=== PATIENT | female | born 1995 | race Caucasian/White ===

== ENCOUNTER 2023-10-07 07:51 | Inpatient (IN) | payer MEDICAID ==
[~2023-10-07] VITALS: Ht 160 cm; Wt 89.5 kg
[~2023-10-07 07:51] MED LIST: MAGNESIUM CITR100 MG PO; PRENATAL TABLET PO; PROBIOTIC BLEN1 EACH PO
[2023-10-08] VITALS (37 sets, daily range): BP systolic 89–122; BP diastolic 50–80; PULSE 69–122; TEMP 97.4–97.9
[2023-10-08] MEDS ORDERED: LR & Oxytocin 500 ML IV SCH ×2 (06:15)
[2023-10-08] MEDS ORDERED: LR 1,000 ML IV SCH (06:15)
--- NOTE | 2023-10-08 06:35 | NUR ---
PT AMBULATORY TO LR5 WITH SPOUSE. CHANGED INTO CLEAN GOWN. FHR MONITOR/TOCO APPLIED. PT DENIES ANY REGULAR CONTRACTIONS, VAGINAL BLEEDING, OR LEAKING OF FLUID. PT REPORTS GOOD MOVEMENT. PT ORIENTED TO ROOM AND CALL LIGHT. PLAN OF CARE DISCUSSED. PT VERBALIZES UNDERSTANDING.
[2023-10-08 07:41] LABS: BASO % 0.5 % (0.0-2.0); EOS # 0.3 K/mm3 (0.0-0.7); EOS % 3.9 % (0.0-4.0); GRAN # 5.5 K/mm3 (1.4-6.5); GRAN % 65.8 % (42.2-75.2); HEMOGLOBIN 12.7 g/dl (12.5-16.0); LYMPH # 1.8 K/mm3 (1.2-3.4); LYMPH % 21.6 % (20.0-51.0); MEAN CELL VOLUME 92 fl (80.0-100.0); MEAN CORPUSCULAR HEMOGLOBIN 32 pg (27-31); MEAN CORPUSCULAR HGB CONC 34 g/dl (33.0-37.0); MEAN PLATELET VOLUME 10.8 fl (7.4-10.4); MONO # 0.6 K/mm3 (0.1-0.6); MONO % 7.4 % (1.7-9.3); PLATELET COUNT 196 K/mm3 (130-400); REDCELL DISTRIBUTION WIDTH-CV 13.2 % (11.5-14.5)
[2023-10-08 07:51] LABS: HEMATOCRIT 36.9 % (37.0-47.0)
--- NOTE | 2023-10-08 08:35 | NUR ---
DR MARSHALL AT PT BEDSIDE. ULTRASOUND CONFIRMS VERTEX PRESENTATION. DR SNOW DISCUSSES POC. PT VERBALIZES UNDERSTANDING.
--- NOTE | 2023-10-08 09:23 | NUR ---
[id number] THIS RN AT BEDSIDE ADJUSTING FHR MONITOR. MATERNAL POSITION CHANGED FROM HIGH FOWLERS TO LEFT LATERAL TO KEEP FHR ON MONITOR.
--- NOTE | 2023-10-08 10:48 | NUR ---
[id number] THIS RN AT BEDSIDE ADJUSTING FHR MONITOR. DIFFICULTY TRACING DUE TO MATERNAL POSITION. PT WANTING TO DO BIRTHING BALL. THIS RN NOT ABLE TO USABILITY STRATEGIST FHR IN THAT POSITION. 1048 PT AGREES TO STAND AND SWAY
[2023-10-08] MEDS ORDERED: ROPivacaine PF 0.2% 200 ML IV ONE (11:25)
[2023-10-08] MEDS ORDERED: diphenhydrAMINE 50 MG/ML 1 ML VIAL IV PRN (13:15)
[2023-10-08] MEDS ORDERED: diphenhydrAMINE 25 MG CAP PO PRN (13:15)
[2023-10-08] MEDS ORDERED: Naloxone 0.4 MG/ML VIAL IV PRN ×2 (13:15→19:15)
[2023-10-08] MEDS ORDERED: Ondansetron 4 MG/2 ML VIAL IV PRN (13:15)
[2023-10-08] MEDS ORDERED: ePHEDrine 50 MG/10 ML VIAL IV PRN (13:15)
--- NOTE | 2023-10-08 17:35 | NUR ---
1700 DR MARSHALL ON UNIT. THIS RN UPDATES. DR MARSHALL INSTRUCTS THIS RN TO BEGIN DIRECTING PT WITH PUSHING WITH CONTRACTIONS. 1705 MCDONOUGH REMOVED. THIS RN AT BEDSIDE. 1710 PT BEGINS PUSHING WITH CONTRACTIONS. [address]18 THIS RN [address] IN DR MARSHALL FROM LABOR DESK FOR DELIVERY. Mushtaq BRASHER RN IN ROOM FOR NURSERY. Melva RICHARD RN IN ROOM FOR CHARGE NURSE. 1723 SPONTANEOUS DELIVERY OF VIABLE FEMALE . BULB SUCTIONED AND STIMULATED. TO MOTHER'S ABDOMEN. Mushtaq BRASHER RN TAKES OVER CARE OF . DELAYED CORD CLAMPING PRACTICED. CORD CLAMPED BY DR MARSHALL AND CUT BY FOB. INFANT TO MOTHER'S CHEST FOR SKIN TO SKIN. 1728 SPONTANEOUS DELIVERY OF PLACENTA. PITOCIN BOLUS STARTED PER PROTOCOL. 2ND DEGREE PERINEAL LACERATION NOTED AND REPAIRED BY DR MARSHALL. FUNDAL MASSAGE DONE. FIRM/MIDLINE. SMALL AMT OF BLEEDING NOTED. PERICARE DONE. PT REPOSITIONED. CLEAN ICE PACK PAD PLACED. PLAN OF CARE AND SAFETY PRECAUTIONS DISCUSSED. PT VERBALIZES UNDERSTANDING.
[2023-10-08] MEDS ORDERED: Magnes Hydrox (MOM) 80 MG/ML 30 ML CUP PO PRN (17:45)
[2023-10-08] MEDS ORDERED: Loratadine 10 MG TAB PO PRN (17:45)
[2023-10-08] MEDS ORDERED: Phenylephrine/Mineral Oil/Petrolatum 57 GM TUBE RC PRN (19:15)
[2023-10-08] MEDS ORDERED: Acetaminophen 500 MG TAB PO PRN (19:15)
[2023-10-08] MEDS ORDERED: Witch Hazel 50% Pads Bulk TUB TP PRN (19:15)
[2023-10-08] MEDS ORDERED: oxyCODONE 5 MG TAB PO PRN (19:15)
[2023-10-08] MEDS ORDERED: Mag/Al Hydrox/Simeth Susp 30 ML CUP PO PRN (19:15)
[2023-10-08] MEDS ORDERED: Ibuprofen 600 MG TAB PO SCH (19:15)
[2023-10-08] MEDS ORDERED: Measles/Mumps/Rubella Virus Vaccine Live w Diluent 0.5 ML VIAL SQ SCH (19:15)
[2023-10-08] MEDS ORDERED: traZODone 50 MG TAB PO PRN (21:00)
[2023-10-09 01:15] VITALS: BP 107/56; PULSE 86; TEMP 98
[2023-10-09 04:00] VITALS: BP 91/66; PULSE 77; TEMP 97.9
[2023-10-09 06:51] LABS: HEMOGLOBIN 10.9 g/dl (12.5-16.0)
[2023-10-09 06:56] LABS: HEMATOCRIT 31.6 % (37.0-47.0)
[2023-10-09 07:30] VITALS: BP 107/69; PULSE 78; TEMP 97.6
[2023-10-09] MEDS ORDERED: Sennosides/Docusate 8.6-50 MG TAB PO SCH (08:00)
[2023-10-09] MEDS ORDERED: Prenatal Vitamins/Iron/FA TAB PO SCH (09:00)
[2023-10-09] MEDS ORDERED: IBU600 MG PO (09:39)
[2023-10-09 16:16] VITALS: BP 104/54; PULSE 89
[2023-10-09] MEDS ORDERED: cefTRIAXone 1 G in Water For Injection,Sterile 10 ML IV SCH (17:30)
[2023-10-09] MEDS ORDERED: Acetaminophen 500 MG TAB PO PRN (17:30)
--- NOTE | 2023-10-09 19:35 | NUR ---
DISCHARGE INSTRUCTIONS REVIEWED WITH PT AND SPOUSE, UNDERSTANDING VERBALIZED. PT AMBULATORY OFF UNIT WITH SPOUSE AND .
== END 2023-10-09 19:35 | disposition home or self-care (01) | DRG 807 ==
LOC: OB → LDR 10-08 06:25 → OB 10-08 06:25
PROVIDERS: ADMIT Obstetrics & Gynecology
PROC: 10E0XZZ Delivery of Products of Conception, External Approach (ICD-10-PCS; principal; 2023-10-08)
PROC: 0KQM0ZZ Repair Perineum Muscle, Open Approach (ICD-10-PCS; 2023-10-08)
PROC: 3E033VJ Introduction of Other Hormone into Peripheral Vein, Percutaneous Approach (ICD-10-PCS; 2023-10-08)
PROC: 10907ZC Drainage of Amniotic Fluid, Therapeutic from Products of Conception, Via Natural or Artificial Opening (ICD-10-PCS; 2023-10-08)
DX: O43.893 Other placental disorders, third trimester (principal); Z37.0 Single live birth; Z3A.39 39 weeks gestation of pregnancy; K21.9 Gastro-esophageal reflux disease without esophagitis; O99.62 Diseases of the digestive system complicating childbirth; O70.1 Second degree perineal laceration during delivery
CPT/HCPCS: J2590; J2795; J7120